=== PATIENT | female | born 1965 | race Caucasian/White ===

== ENCOUNTER → 2016-11-08 | Outpatient (CLI) | payer BC ==
--- NOTE | 2016-11-09 07:55 | MAMMOGRAPHY REPORT ---
BILATERAL DIGITAL SCREENING MAMMOGRAM TOMOSYNTHESIS WITH CAD: 11/08/2016 CLINICAL HISTORY: Routine screening. Patient has no complaints. TECHNIQUE: Breast tomosynthesis in addition to standard 2D mammography was performed. Current study was also evaluated with a Computer Aided Detection (CAD) system. COMPARISON: Comparison is made to exams dated: 11/04/2015 mammogram, 10/31/2014 mammogram, 09/05/2013 mammogram, 08/30/2012 mammogram, 08/25/2011 mammogram, and 08/20/2010 mammogram - [facility] enter. BREAST COMPOSITION: The tissue of both breasts is extremely dense, which lowers the sensitivity of mammography. FINDINGS: There are diffuse bilateral punctate microcalcifications. Stable asymmetries in the later al posterior and superior right breast. No new suspicious mass, architectural distortion or cluster of microcalcifications is seen. IMPRESSION: ACR BI-RADS CATEGORY 1: NEGATIVE There is no mammographic evidence of malignancy. A 1 year screening mammogram is recommended. The p atient will receive written notification of the results. Approximately 10% of breast cancers are not detected with mammography. A negative mammographic repor t should not delay biopsy if a clinically suggestive mass is present. Carla Chapin M.D. ay/:11/08/2016 21:55:23 Faculty Support Coordinator: Camelia Robertson, [facility] letter sent: Normal 1/2 BI-RADS Code: ACR BI-RADS Category 1: Negative
== END | disposition home or self-care (01) ==
LOC: C.MAMM 07:24
PROVIDERS: ATTEND Obstetrics & Gynecology
DX: Z12.31 Encounter for screening mammogram for malignant neoplasm of breast (principal)

== ENCOUNTER → 2017-03-30 | Outpatient (CLI) | payer BC ==
--- NOTE | 2017-03-30 13:40 | MAMMOGRAPHY REPORT ---
UNILATERAL LEFT DIGITAL DIAGNOSTIC MAMMOGRAM TOMOSYNTHESIS WITH CAD AND TARGETED LEFT ULTRASOUND: 04/2017 CLINICAL HISTORY: 51-year-old woman presents for evaluation of the left breast. She currently report s discomfort and a "different" feeling. Initially at the end of December 2016 she noted a sharp pain in the upper outer quadrant of the left breast that lasted for approximately one week. She also notes t he breast is sometimes swollen. No palpable mass or skin changes. No nipple discharge. TECHNIQUE: Left breast tomosynthesis in addition to standard 2D mammography was performed. Current st udy was also evaluated with a Computer Aided Detection (CAD) system. COMPARISON: Comparison is made to exams dated: 11/08/2016 mammogram, 11/04/2015 mammogram, 10/31/2014 m ammogram, 09/11/2013 mammogram, 09/05/2013 mammogram, and 08/30/2012 mammogram - [facility] enter. BREAST COMPOSITION: The tissue of the left breast is heterogeneously dense, which may obscure small masses. FINDINGS: A square-shaped a marker was placed on the skin of the left upper outer quadrant, in the ar ea of pain pointed out by the patient. No new suspicious mass, architectural distortion or cluster o f microcalcifications is seen. There has been no significant interval change compared to prior mammo grams. Targeted ultrasound was performed in the area of nonfocal mastalgia pointed out by the patient, throu ghout the superior left breast with particular attention to the upper outer quadrant and 3:00 axis. Incidental note is made of a benign anechoic simple cyst in the 12:00 left breast, 1 cm from the nipp le, measuring 5.7 x 3.2 x 5.5 mm, and a small cyst cluster in the 1:00 left breast, 2 cm from the nip ple, measuring 5.4 x 4.4 x 8.0 mm. These small cysts are unlikely to explain the pain extending thro ughout the entire superior left breast and are likely incidental. No suspicious solid or cystic mass is seen. IMPRESSION: ACR BI-RADS CATEGORY 2: BENIGN, TARGETED ULTRASOUND ACR BI-RADS CATEGORY 2: BENIGN 1. There is no suspicious mammographic or targeted sonographic abnormality in the superior left breas t to explain the nonfocal mastalgia. Therefore, clinical follow-up is recommended. 2. Overall, no mammographic or targeted sonographic evidence of malignancy in the left breast. A fe w scattered cysts are seen compatible with fibrocystic change. Recommend return to annual screening mammography schedule. These results and recommendations were discussed with the patient at the time of the exam. Approximately 10% of breast cancers are not detected with mammography. A negative mammographic report should not delay biopsy if a clinically suggestive mass is present. Carla Chapin M.D. ay/:03/30/2017 12:09:40 Brim Buster: Camelia NEVILLE(Dee)(M), [facility] letter sent: Normal 1/2 BI-RADS Code: ACR BI-RADS Category 2: Benign Ultrasound BI-RADS: ACR BI-RADS Category 2: Benign
== END | disposition home or self-care (01) ==
LOC: C.MAMM 10:46
PROVIDERS: ATTEND Physician Assistant
DX: N64.4 Mastodynia (principal)

== ENCOUNTER → 2017-04-13 | Outpatient (CLI) | payer BC | END | disposition home or self-care (01) | LOC: C.PAPS 11:20 | PROVIDERS: ATTEND Obstetrics & Gynecology | DX: Z01.419 Encounter for gynecological examination (general) (routine) without abnormal findings (principal) ==